=== PATIENT | male | born 1995 | race Hispanic/Latino ===

== ENCOUNTER 2017-08-09 11:55 | Emergency (ER) | payer MEDICAID, OTHER ==
[2017-08-09] MEDS ORDERED: SODIUM CHLORIDE 0.9% 1000ML 1,000 ML IV ONE (12:06)
== END 2017-08-09 13:08 | disposition home or self-care (01) ==
LOC: EDH 11:55
DX: R51 Headache (principal); F14.10 Cocaine abuse, uncomplicated; Z72.0 Tobacco use
CPT/HCPCS: 70450; 99284; J7030